=== PATIENT | female | born 2000 | race Caucasian/White ===

== ENCOUNTER 2021-02-17 20:21 | Emergency (ER) | payer OTHER ==
[~2021-02-17] VITALS: Ht 177.8 cm; Wt 90.9 kg
[2021-02-17 20:59] VITALS: TEMP 98.5
[2021-02-17] MEDS ORDERED: AMOXICILLIN875 MG PO (21:38)
[2021-02-17 22:06] VITALS: BP 116/70; PULSE 76
== END 2021-02-17 22:06 | disposition home or self-care (01) ==
LOC: COL.ER 20:21
DX: H66.91 Otitis media, unspecified, right ear (principal)

== ENCOUNTER 2021-06-14 17:42 | Emergency (ER) | payer OTHER ==
[~2021-06-14] VITALS: Ht 177.8 cm; Wt 95.5 kg
[~2021-06-14 17:42] MED LIST: AMOXICILLIN875 MG PO
[2021-06-14 17:53] VITALS: TEMP 98.7
[2021-06-14] MEDS ORDERED: CEPHALEXIN500 M1 PO (19:11)
[2021-06-14 19:20] VITALS: BP 112/67; PULSE 64
== END 2021-06-14 19:22 | disposition home or self-care (01) ==
LOC: COL.ER 17:42
DX: L05.91 Pilonidal cyst without abscess (principal)